=== PATIENT | male | born 1930 | race Caucasian/White ===

== ENCOUNTER 2016-05-01 15:07 | Emergency (ER) | payer MEDICARE, OTHER ==
[2016-05-01] MEDS ORDERED: Aspirin 81 MG Tab.Chew ONE (15:31)
[2016-05-01] MEDS ORDERED: Aspirin 81 MG Tab.Chew PO ONE (15:51)
--- NOTE | 2016-05-01 15:51 | EDM.PDOC ---
ED HISTORY OF PRESENT ILLNESS - General Stated Complaint: chest pain, confusion Time Seen by Provider: 05/01/16 15:22 Source of Information: Reports: Patient History Limitations: Reports: No limitations - History of Present Illness INITIAL COMMENTS - FREE TEXT/NARRATIVE: Patient presents with chest pain that started approximately 2 hours ago. The son tells me that his mother called him around 11 am saying that dad was more confused than usual. The son visited with his dad on the phone and a little later in person and says that he didn't notice anything worse than has been present for last 3-4 months. They have noticed a progression of the dementia over last 3-4 months with some days better and some worse. Pt's son feels that sometime between 11 am and 1:30 pm the chest pain started and patient tells me that it started when he was napping from 1:30 to 2:15. The chest pain is now gone and he has a little ache in the low abdomen. - Related Data Allergies/ADRs: Allergies Allergy/AdvReac Type Severity Reaction Status Date / Time Penicillins Allergy Rash Verified 05/01/16 15:52 Home Meds: Home Meds Aspirin 81 mg PO BRK 04/03/15 [History] Calcium Carbonate [Calcium] 600 mg PO DAILY 04/03/15 [History] Memantine HCl [Namenda] 10 mg PO BID 04/03/15 [History] Multivitamin [Multi-Vitamin Daily] 1 tab PO DAILY 04/03/15 [History] Past Medical History HEENT History: Reports: Hard of hearing, Impaired vision Neurological History: Reports: Alzheimers disease Psychiatric History: Reports: Dementia Dermatologic History: Reports: Eczema Social & Family History - Family History Family Medical History: Noncontributory - Tobacco Use Smoking Status *Q: Never Smoker - Recreational Drug Use Recreational Drug Use: No ED ROS GENERAL - Review of Systems Review Of Systems: See Below Constitutional: Denies: fever, chills HEENT: Denies: Throat pain, Vertigo, Vision change Respiratory: Denies: shortness of breath, wheezing, cough Cardiovascular: Reports: Chest pain, Lightheadedness. Denies: Syncope GI/Abdominal: Reports: Abdominal pain. Denies: Diarrhea, Vomiting : Reports: no symptoms Musculoskeletal: Reports: no symptoms Skin: Denies: cyanosis, jaundice, mottled, pallor, diaphoresis Neurological: Reports: confusion, dizziness. Denies: headache, trouble speaking Psychiatric: Denies: Agitation, Anxiety ED EXAM, GENERAL - Physical Exam Exam: See Below Exam Limited By: No limitations General Appearance: alert, WD/WN, no apparent distress Eye Exam: bilateral eye: EOMI, normal inspection, PERRL Ears: normal external exam, hearing grossly normal Nose: normal inspection. No: nasal deformity, clear rhinorrhea Throat/Mouth: Normal inspection, Normal lips, Normal voice, No airway compromise Head: atraumatic, normocephalic Neck: normal inspection, supple, non-tender, full range of motion. No: carotid bruit, lymphadenopathy (L), lymphadenopathy (R) Respiratory/Chest: no respiratory distress, lungs clear, normal breath sounds Cardiovascular: normal peripheral pulses, regular rate, rhythm, no murmur Peripheral Pulses: 2+: carotid (L), carotid (R), radial (L), radial (R), posterior tibial (L), posterior tibial (R) GI/Abdominal: normal bowel sounds, soft, non tender, no organomegaly, no distention Back Exam: normal inspection, full range of motion. No: CVA tenderness (L), CVA tenderness (R) Extremities: normal inspection, normal range of motion, non-tender, no pedal edema, other (no weakness or asymmetry) Neurological: alert, CN II-XII intact, no motor/sensory deficits, memory loss recent events (has dementia) Psychiatric: normal affect, normal mood Skin Exam: Warm, Dry, Intact, Normal color, No rash Course - Vital Signs Last Recorded V/S: Last Vital Signs Temp 96.7 F 05/01/16 15:10 Pulse 56 L 05/01/16 15:10 Resp 16 05/01/16 15:10 BP 140/48 L 05/01/16 15:10 Pulse Ox 97 05/01/16 15:10 - Orders/Labs/Meds Orders: Active Orders 24 hr Category Date Time Status Chest 1V Frontal [CR] Stat Exams 05/01/16 15:39 Ordered Labs: Laboratory Tests 05/01/16 05/01/16 05/01/16 Range/Units 15:35 15:35 18:50 WBC 4.8 L (5.0-10.0) 10^3/uL RBC 4.91 (4.50-6.00) 10^6/uL Hgb 14.7 (13.0-17.0) g/dL Hct 44.3 (40.0-52.0) % MCV 90.3 (82.0-92.0) fL MCH 30.0 (27.0-31.0) pg MCHC 33.2 (32.0-36.0) g/dL RDW 13.4 (11.5-14.5) % Plt Count 141 L (150-300) 10^3/uL MPV 7.5 (7.4-10.4) fL Neut % (Auto) 50.3 (50.0-70.0) % Lymph % (Auto) 31.6 (20.0-40.0) % [place] % (Auto) 14.3 H (2.0-8.0) % Eos % (Auto) 3.2 H (1.0-3.0) % Baso % (Auto) 0.6 (0.0-1.0) % Neut # 2.4 L (2.5-7.0) 10^3/uL Lymph # 1.5 (1.0-4.0) 10^3/uL [place]ard # 0.7 (0.1-0.8) 10^3/uL Eos # 0.2 (0.1-0.3) 10^3/uL Baso # 0.0 (0.0-0.1) 10^3/uL Sodium 143 (136-145) mmol/L Potassium 4.3 (3.3-5.3) mmol/L Chloride 105 (98-115) mmol/L Carbon Dioxide 23.2 (21.0-32.0) mmol/L BUN 19 (6-25) mg/dL Creatinine 0.91 (0.51-1.17) mg/dL Est Cr Clr Drug Dosing 58.27 mL/min Estimated GFR (MDRD) > 60 mL/min Glucose 91 (70-110) mg/dL Calcium 8.9 (8.7-10.3) mg/dL Troponin I 0.05 (0.00-0.070) ng/mL Specimen Type Urinvoid Urine Color Yellow (YELLOW) Urine Appearance Clear (CLEAR) Urine pH 7.0 (5.0-9.0) Ur Specific [place] 1.015 (1.005-1.030) Urine Protein Negative (NEGATIVE) mg/dL Urine Glucose (UA) Negative (NEGATIVE) mg/dL Urine Ketones Negative (NEGATIVE) mg/dL Urine Occult Blood Negative (NEGATIVE) Urine Nitrite Negative (NEGATIVE) Urine Bilirubin Negative (NEGATIVE) Urine Urobilinogen 0.2 (0.2-1.0) E.U./dL Ur Leukocyte Esterase Negative (NEGATIVE) Urine RBC 0-5 /HPF Urine WBC 0-5 /HPF Ur Epithelial Cells Rare /LPF Urine Bacteria Not seen (NONE TO FEW) /HPF 05/01/16 Range/Units 19:05 WBC (5.0-10.0) 10^3/uL RBC (4.50-6.00) 10^6/uL Hgb (13.0-17.0) g/dL Hct (40.0-52.0) % MCV (82.0-92.0) fL MCH (27.0-31.0) pg MCHC (32.0-36.0) g/dL RDW (11.5-14.5) % Plt Count (150-300) 10^3/uL MPV (7.4-10.4) fL Neut % (Auto) (50.0-70.0) % Lymph % (Auto) (20.0-40.0) % [place] % (Auto) (2.0-8.0) % Eos % (Auto) (1.0-3.0) % Baso % (Auto) (0.0-1.0) % Neut # (2.5-7.0) 10^3/uL Lymph # (1.0-4.0) 10^3/uL Menard # (0.1-0.8) 10^3/uL Eos # (0.1-0.3) 10^3/uL Baso # (0.0-0.1) 10^3/uL Sodium (136-145) mmol/L Potassium (3.3-5.3) mmol/L Chloride (98-115) mmol/L Carbon Dioxide (21.0-32.0) mmol/L BUN (6-25) mg/dL Creatinine (0.51-1.17) mg/dL Est Cr Clr Drug Dosing mL/min Estimated GFR (MDRD) mL/min Glucose (70-110) mg/dL Calcium (8.7-10.3) mg/dL Troponin I 0.04 (0.00-0.070) ng/mL Specimen Type Urine Color (YELLOW) Urine Appearance (CLEAR) Urine pH (5.0-9.0) Ur Specific [place] (1.005-1.030) Urine Protein (NEGATIVE) mg/dL Urine Glucose (UA) (NEGATIVE) mg/dL Urine Ketones (NEGATIVE) mg/dL Urine Occult Blood (NEGATIVE) Urine Nitrite (NEGATIVE) Urine Bilirubin (NEGATIVE) Urine Urobilinogen (0.2-1.0) E.U./dL Ur Leukocyte Esterase (NEGATIVE) Urine RBC /HPF Urine WBC /HPF Ur Epithelial Cells /LPF Urine Bacteria (NONE TO FEW) /HPF Meds: Medications Discontinued Medications Generic Name Dose Route Start Last Admin Trade Name Freq PRN Reason Stop Dose Admin Aspirin Confirm 05/01/16 15:31 05/01/16 16:07 Aspirin Administered 05/01/16 15:32 Not Given Dose 324 mg .ROUTE .STK-MED ONE Aspirin 324 mg 05/01/16 15:51 05/01/16 15:35 Aspirin PO 05/01/16 15:52 324 mg ONETIME ONE Administration - Re-Assessments/Exams Free Text/Narrative Re-Assessment/Exam: 05/01/16 17:18 EKG shows some PACs but other dunn normal. CXR is normal. Troponin is 0.05 and will recheck at 4 hours. Discussed findings with patient and his family. Will try to get UA in the mean time. Patient is comfortable and has had absolutely no chest pain since arrival in ER. 05/01/16 19:52 Second trop is 0.04. Discussed findings with pt, , son and dtr-in-law. They all feel his mental status is at the baseline of recent months. Pt discharged in stable condition with follow up with PCP in 1-2 days. Departure - Departure Time of Disposition: 19:45 Disposition: Home, Self-Care 01 Condition: good Clinical Impression: Chest pain Qualifiers: Chest pain type: unspecified Qualified Code(s): R07.9 - Chest pain, unspecified Additional Instructions: 1. Follow up with your PCP in 1-2 days or [place] if worsening or significant change; go to ER if PCP unavailable. - My Orders Last 24 Hours: My Active Orders 05/01/16 15:39 Chest 1V Frontal [CR] Stat - Assessment/Plan Last 24 Hours: My Active Orders 05/01/16 15:39 Chest 1V Frontal [CR] Stat
[2016-05-01 15:59] VITALS: BP 140/48
[2016-05-01 16:13] LABS: CHLORIDE,CL 105 mmol/L (98-115); SODIUM,NA 143 mmol/L (136-145)
== END 2016-05-01 20:10 | disposition home or self-care (01) ==
LOC: KA.ED 15:07
DX: R07.9 Chest pain, unspecified (principal); Z88.0 Allergy status to penicillin; Z79.899 Other long term (current) drug therapy
CPT/HCPCS: 36415; 71010; 80048; 81001; 84484; 85025; 93005; 99285; A9270; 99284

== ENCOUNTER 2016-06-18 09:50 | Emergency (ER) | payer MEDICARE, OTHER ==
--- NOTE | 2016-06-18 11:12 | EDM.PDOC ---
ED HPI Skin/Rash - General Chief Complaint: Skin Complaint Stated Complaint: WEAK, RASH ON BOTH ARMS Time Seen by Provider: 06/18/16 10:49 Source: Reports: Patient, Family () - History of Present Illness INITIAL COMMENTS - FREE TEXT/NARRATIVE: Patient presents with general weakness and dizziness for a few seconds when he stands up. 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 He thinks he drinks plenty of water daily but the lift supervisor has noticed that he drinks lots of tea and very little to no water. He has had the weakness for a long time but seems worse today. He denies specific weakness in either hand or leg. He has had tingling in both forearms today. He tried some cortisone cream. Treatments [employer]: Reports: Other medication(s) Other Treatments [employer]: cortisone cream to arms - Related Data Allergies Allergy/AdvReac Type Severity Reaction Status Date / Time Penicillins Allergy Rash Verified 06/18/16 10:08 Home Meds: Ambulatory Orders Medication Instructions Recorded Confirmed Aspirin 81 mg PO BEDTIME 04/03/15 06/18/16 Calcium Carbonate [Calcium] 600 mg PO DAILY 04/03/15 06/18/16 Memantine HCl [Namenda] 10 mg PO BID 04/03/15 06/18/16 Multivitamin [Multi-Vitamin Daily] 1 tab PO DAILY 04/03/15 06/18/16 Past Medical History HEENT History: Reports: Hard of hearing, Impaired vision Neurological History: Reports: Alzheimers disease Psychiatric History: Reports: Dementia Dermatologic History: Reports: Eczema Social & Family History - Family History Family Medical History: Noncontributory - Tobacco Use Smoking Status *Q: Never Smoker - Recreational Drug Use Recreational Drug Use: No ED ROS GENERAL - Review of Systems Review Of Systems: See Below Constitutional: Denies: fever, chills HEENT: Denies: Throat pain Respiratory: Denies: Shortness of Breath, Cough Cardiovascular: Reports: Lightheadedness. Denies: Chest pain, Syncope GI/Abdominal: Denies: Abdominal pain, Diarrhea, Vomiting : Denies: dysuria, flank pain, frequency Musculoskeletal: Reports: no symptoms Skin: Denies: cyanosis, jaundice, mottled, pallor, diaphoresis Neurological: Denies: Confusion, Headache, Seizure, Syncope Psychiatric: Denies: Agitation, Anxiety ED EXAM, SKIN/RASH Exam: See Below Exam Limited By: No limitations General Appearance: alert, WD/WN, no apparent distress Eye Exam: bilateral eye: EOMI, normal inspection, PERRL Ears: normal external exam, hearing grossly normal Nose: normal inspection, no blood Throat/Mouth: Normal lips, Normal voice, No airway compromise Head: atraumatic, normocephalic Neck: full range of motion Respiratory/Chest: no respiratory distress, lungs clear, normal breath sounds, no accessory muscle use Cardiovascular: regular rate, rhythm, no edema, no murmur GI/Abdominal: soft, non tender, no organomegaly, no distention Back Exam: No: CVA tenderness (L), CVA tenderness (R) Extremities: non-tender, no pedal edema, other (small petechial rash on media left ankle, not excoriated; does itch some but better in last two days per patient. Upper and lower extremity is 5/5 and symmetric.) Neurological: alert, oriented, CN II-XII intact, no motor/sensory deficits, memory loss recent events (consistent with early dementia) Psychiatric: normal affect, normal mood Skin: Warm, Dry, Intact, Normal color, No rash Course - Vital Signs Last Recorded V/S: Last Vital Signs Temp 97.1 F 06/18/16 10:26 Pulse 58 L 06/18/16 13:21 Resp 16 06/18/16 10:26 BP 182/87 H 06/18/16 13:21 Pulse Ox 97 06/18/16 10:26 Orthostatic Blood Pressure [ 195/75 Standing] Orthostatic Blood Pressure [ 183/79 Sitting] Orthostatic Blood Pressure [ 180/72 Supine] - Orders/Labs/Meds Labs: Laboratory Tests 06/18/16 06/18/16 06/18/16 Range/Units 11:15 11:15 11:25 WBC 4.5 L (5.0-10.0) 10^3/uL RBC 4.89 (4.50-6.00) 10^6/uL Hgb 14.8 (13.0-17.0) g/dL Hct 44.4 (40.0-52.0) % MCV 90.9 (82.0-92.0) fL MCH 30.2 (27.0-31.0) pg MCHC 33.2 (32.0-36.0) g/dL RDW 13.2 (11.5-14.5) % Plt Count 140 L (150-300) 10^3/uL MPV 7.5 (7.4-10.4) fL Neut % (Auto) 66.5 (50.0-70.0) % Lymph % (Auto) 20.0 (20.0-40.0) % [place] % (Auto) 9.8 H (2.0-8.0) % Eos % (Auto) 3.3 H (1.0-3.0) % Baso % (Auto) 0.4 (0.0-1.0) % Neut # (Auto) 3.1 (2.5-7.0) 10^3/uL Lymph # (Auto) 0.9 L (1.0-4.0) 10^3/uL [place] # (Auto) 0.4 (0.1-0.8) 10^3/uL Eos # (Auto) 0.1 (0.1-0.3) 10^3/uL Baso # (Auto) 0.0 (0.0-0.1) 10^3/uL Sodium 142 (136-145) mmol/L Potassium 4.3 (3.3-5.3) mmol/L Chloride 104 (98-115) mmol/L Carbon Dioxide 27.6 (21.0-32.0) mmol/L BUN 13 (6-25) mg/dL Creatinine 0.94 (0.51-1.17) mg/dL Est Cr Clr Drug Dosing TNP Estimated GFR (MDRD) > 60 mL/min Glucose 118 H (70-110) mg/dL Calcium 9.2 (8.7-10.3) mg/dL Specimen Type Urinvoid Urine Color Dark yellow H (YELLOW) Urine Appearance Clear (CLEAR) Urine pH 6.0 (5.0-9.0) Ur Specific [place] 1.020 (1.005-1.030) Urine Protein Negative (NEGATIVE) mg/dL Urine Glucose (UA) Negative (NEGATIVE) mg/dL Urine Ketones Negative (NEGATIVE) mg/dL Urine Occult Blood Negative (NEGATIVE) Urine Nitrite Negative (NEGATIVE) Urine Bilirubin Negative (NEGATIVE) Urine Urobilinogen 0.2 (0.2-1.0) E.U./dL Ur Leukocyte Esterase Negative (NEGATIVE) Urine RBC 0-5 /HPF Urine WBC 5-10 H /HPF Ur Epithelial Cells Rare /LPF Urine Bacteria Few (NONE TO FEW) /HPF Meds: Medications Discontinued Medications Generic Name Dose Route Start Last Admin Trade Name Fili PRN Reason Stop Dose Admin Sodium Chloride 1,000 mls @ 999 mls/hr 06/18/16 11:45 06/18/16 12:02 Normal Saline IV 06/18/16 12:45 999 mls/hr .BOLUS ONE Administration - Re-Assessments/Exams Free Text/Narrative Re-Assessment/Exam: 06/18/16 12:18 Discussed findings and treatment plan with patient. With the moderate but significant drop in orthostatic pressures I feel he will respond to IV fluids and increased daily water intake at home. His will fill a pitcher with 6- 8 cups of water and put in the fridge each morning and patient will try to finish that throughout the day. He has no heart disease so this shouldn't be a problem. Departure - Departure Time of Disposition: 13:15 Disposition: Home, Self-Care 01 Condition: good Clinical Impression: Hypovolemia dehydration Referrals: Iram Holliday MD [Primary Care Provider] - Forms: ED Department Discharge Additional Instructions: 1. Increase daily water intake as we discussed: Drink 6-8 cups a day. 2. Follow up with your PCP next week for recheck. 3. Recheck sooner if worsening.
[2016-06-18 11:43] LABS: CHLORIDE,CL 104 mmol/L (98-115); SODIUM,NA 142 mmol/L (136-145)
[2016-06-18] MEDS ORDERED: Sodium Chloride 0.9% 1,000 ML IV ONE (11:45)
[2016-06-18 13:22] VITALS: BP 182/87
== END 2016-06-18 11:20 | disposition home or self-care (01) ==
LOC: KA.ED 09:50
DX: E86.0 Dehydration (principal); E86.1 Hypovolemia; G30.9 Alzheimer's disease, unspecified; F02.80 Dementia in other diseases classified elsewhere, unspecified severity, without behavioral disturbance, psychotic disturbance, mood disturbance, and anxiety; Z88.0 Allergy status to penicillin; Z79.899 Other long term (current) drug therapy
CPT/HCPCS: 36415; 80048; 81001; 82962; 85025; 96360; 99284; J7030